=== PATIENT | male | born 1945 | race Caucasian/White ===

== ENCOUNTER 2017-01-19 07:53 | Outpatient (CLI) | payer MEDICARE, OTHER ==
--- NOTE | ~2017-01-19 | HEMODYNAMI ---
PATIENT:SHYANNE PEÑA MEDICAL RECORD: [id number] : 49 LOCATION:[facility] ADMISSION DATE: 01/19/17 Generatedon:01/19/201710:21 Patient name: SHYANNE PEÑA Patient #: [id number] SSN: : Date of study: 01/19/2017 Page: Of Hemodynamic Procedure Report Patient Data Patient Demographics Procedure consent was obtained First Name: SHYANNE Gender: Male Last Name: CASEY : 1945 [facility] Initial: DEMOND Age: 71 year(s) Patient #: [id number] Race: Additional ID: [id number] Contact details Address: [address] [place] [address] State: [place] City: [place] Zip code: [address] Past Medical History Allergies: No known allergies Admission Admission Data Admission Date: 01/19/2017 Admission Time: 7:53 Height (in.): 72.83 BSA: 2.2 (m2) Height (cm.): 185 BMI: 27.89 (kg/m2) Weight (lbs.): 210.43 Weight (kg.): 95.45 Lab Results Lab Result Date: 01/19/2017 Lab Result Time: 0:00 Biochemistry Name Units Result Min Max BUN mg/dl 24 --(----)-* 7 18 Creatinine mg/dl 1.1 --(--*-)-- 0.6 1.3 CBC Name Units Result Min Max Hemoglobin g/dl 14.9 --(-*--)-- 13.5 17.5 Procedure Procedure Types Cath Procedure Diagnostic Procedure C [facility] w/Coronaries PCI Procedure Coronary Stent Initial Miscellaneous Procedures Procedure Description Procedure Date Procedure Date: 01/19/2017 Procedure Start Time: 9:57 Procedure End Time: 10:17 Procedure Staff Name Function Kodi Encarnacion MD Performing Physician Rosita Vega RT Scrub Rhonda Dupree RT Monitor Ashley Padilla RN Nurse Indication Angina Procedure Data Cath Procedure Fluoroscopy Diagnostic fluoroscopy Total fluoroscopy Time: 6.3 time: 6.3 min min Diagnostic fluoroscopy Total fluoroscopy dose: 306 dose: 306 mGy mGy Contrast Material Contrast Material Type Amount (ml) Isovue 300 129 Entry Location Entry Primary Successful Side Size Upsize Upsize Entry Closure Felipe ccessful Closure Location (Fr) 1 (Fr) 2 (Fr) Remarks Device Remarks Radial Right 6 Fr Mechanical TR artery Short Compression Estimated blood loss: 10 ml Diagnostic catheters Device Type Used For End Catheter Placement Diagnostic Terumo 5Fr Procedure Stuart 110cm catheter Diagnostic Infinity 5Fr Procedure AR 2 MOD catheter Procedure Complications No complications Procedure Medications Medication Administration Route Dosage Oxygen NC 2 l/min Lidocaine 2% added to field 20 Heparin Flush Bag added to field 2 bags (1000units/500ml NS) 0.9% NaCl I.V. 100 ml/hr Versed I.V. 1 mg Fentanyl I.V. 50 mcg Versed I.V. 1 mg Fentanyl I.V. 50 mcg Fentanyl I.V. 50 mcg Versed I.V. 1 mg Fentanyl I.V. 50 mcg Heparin Bolus I.V. 4000 units Hemodynamics Rest BSA: 2.2 (m2) HGB: 14.9 (g/dl) O2 Consumption: Estimated: 253.36 (ml/min) O2 Con sumption indexed: Estimated:115.16 (ml/min/m) Heart Rate: 68 (bpm) Snapshots Pre Cath Intra NCS Post Cath Vital Signs Time Heart Resp SPO2 NIBP (mmHg) Rhythm Pain Sedation Rate (ipm) (%) Status Level (bpm) 9:23:59 70 19 95 142/92(117) NSR 0 (11) 10(A) , No pain 9:28:19 73 17 95 143/94(120) NSR 0 (11) 10(A) , No pain 9:32:33 74 16 94 136/92(111) NSR 0 (11) 10(A) , No pain 9:36:53 70 18 95 145/93(103) NSR 0 (11) 10(A) , No pain 9:41:15 72 15 94 135/91(106) NSR 0 (11) 10(A) , No pain 9:45:40 72 16 95 135/80(94) NSR 0 (11) 10(A) , No pain 9:50:00 76 15 93 139/86(105) NSR 0 (11) 10(A) , No pain 9:54:16 70 16 94 128/84(109) NSR 0 (11) 10(A) , No pain 9:58:32 73 16 94 122/88(103) NSR 0 (11) 9(A) , No pain 10:02:44 81 18 94 107/72(91) NSR 0 (11) 9(A) , No pain 10:06:56 80 15 93 112/75(91) NSR 0 (11) 9(A) , No pain 10:11:08 79 16 94 114/76(84) NSR 0 (11) 9(A) , No pain 10:15:20 78 19 94 107/73(96) NSR 0 (11) 10(A) , No pain Medications Time Medication Route Dose Verified Delivered Reason Notes Effectiveness by by 9:48:49 Oxygen NC 2 Kodi Kodi used for l/min Alysha Encarnacion MD procedure 9:48:56 Lidocaine 2% added 20ml Kodi Kodi for local to vial Alysha Encarnacion MD anesthetic field 9:49:03 Heparin Flush added 2 Kodi Kodi used for Bag to bags Alysha Encarnacion MD procedure (1000units/500ml field NS) 9:49:14 0.9% NaCl I.V. 100 Kodi Buffie Per physician ml/hr Alysha Padilla RN 9:55:09 Versed I.V. 1 mg Kodi Buffie for sedation Alysha Padilla RN 9:55:15 Fentanyl I.V. 50 Kodi Buffie for sedation mcg Alysha Padilla RN 9:57:35 Versed I.V. 1 mg Kodi Buffie for sedation Alysha Padilla RN 9:57:39 Fentanyl I.V. 50 Kodi Buffie for sedation mcg Alysha Padilla RN 9:59:11 Fentanyl I.V. 50 Kodi Buffie for sedation mcg Alysha Padilla RN 10:04:49 Heparin Bolus I.V. 4000 Kodi Buffie for verifi ed units Alysha Padilla RN anticoagulation with dr encarnacion 10:04:56 Versed I.V. 1 mg Kodi Buffie for sedation Alysha Padilla RN 10:05:01 Fentanyl I.V. 50 Kodi Buffie for sedation mcg Alysha Padilla merchandising internship Log Time Note 8:48:50 Informed consent obtained and on chart 8:49:20 Diagnostic Cath Status : Elective 8:49:54 Indication : Angina 8:55:01 Rosita Vega RT(R) sent for patient. Start room use. 8:55:02 Time tracking: Regular hours 8:55:06 Plan of Care:Hemodynamics will remain stable., Cardiac rhythm will remain stable., Comfort level will be maintained., Respiratory function will remain adequate., Patient/ family verbilizes understanding of procedure., Procedure tolerated without complication., Recovers from procedure without complications.. 9:12:12 Lab Result : Hemoglobin 14.9 g/dl 9:12:12 Lab Result : Creatinine 1.1 mg/dl 9:12:12 Lab Result : BUN 24 mg/dl 9:16:50 Patient received from Pre/Post Procedure Room to CCL 3 Alert and oriented. Tansferred to table in Supine position. 9:16:51 Warm blankets applied, and fely hugger turned on for patient comfort. 9:16:51 Correct patient and procedure confirmed by team. 9:16:52 ECG and BP/O2 sat monitors applied to patient. 9:22:36 Vital chart was started 9:22:38 Baseline sample Acquired. 9:22:43 Rhythm: sinus rhythm 9:22:45 Full Disclosure recording started 9:23:01 H&P Date Dictated: 01/03/2017 Within 30 days and on chart., H&P Addendum completed by physician on day of procedure. (MUST COMPLETE FOR ALL OUTPATIENTS). 9:23:03 Pre-procedure instructions explained to patient. 9:23:05 Family in waiting room. 9:23:07 Patient NPO since Midnight. 9:23:37 Patient allergic to No known allergies 9:23:54 Is the patient allergic to Iodine/contrast media? No. 9:23:56 Was the patient premedicated? Yes 9:23:57 Is patient on blood thinner?Yes 9:24:01 ACC The patient was administered the following blood thiners within the last 24 hours: ACCPlavix 9:24:03 Patient diabetic? No. 9:24:10 Snore? No 9:24:11 Sleep apnea? No 9:24:17 Dentures? No ? 9:24:26 Patient pain scale 0/10 ?. 9:24:32 IV patent on arrival in left forearm with 0.9% NaCl at [facility]. 9:24:40 Lab results completed and on chart. 9:24:44 Right Radial & Right Groin area was prepped with chlora-prep and draped in sterile fashion 9:24:46 Sharps counted by scrub and verified by R.N. 9:24:48 Physician paged 9:43:08 Use device set Radial Dx 9:45:40 Acist Syringe opened to sterile field. 9:45:41 Medline Cath Pack opened to sterile field. 9:45:41 Bag Decanter opened to sterile field. 9:45:41 Terumo 6Fr Slender Glidesheath opened to sterile field. 9:45:42 St Mendez 260cm J .035 wire opened to sterile field. 9:45:42 Acist Hand Control opened to sterile field. 9:45:43 Acist Manifold opened to sterile field. 9:45:44 Tegaderm 4 x 4 opened to sterile field. 9:45:53 Zero performed for pressure channel P1 9:45:59 Zero performed for pressure channel P1 9:46:08 Zero performed for pressure channel P1 9:47:14 Zero performed for pressure channel P1 9:48:49 Oxygen 2 l/min NC was administered by Kodi Encarnacion MD; used for procedure; 9:48:56 Lidocaine 2% 20ml vial added to field was administered by Kodi Encarnacion MD; for local anesthetic; 9:49:03 Heparin Flush Bag (1000units/500ml NS) 2 bags added to field was administered by Kodi Encarnacion MD; used for procedure; 9:49:10 Patient Height : 185 inches 9:49:14 0.9% NaCl 100 ml/hr I.V. was administered by Ashley Padilla RN; Per physician; 9:49:16 Patient Weight : 95.45 lbs 9:54:41 Physician arrived 9:54:43 --------ALL STOP TIME OUT------ 9:54:44 Final Timeout: patient, procedure, and site verified with staff and physician. All members of the team are in agreement. 9:54:47 Right Radial & Right Groin site verified by team. 9:54:51 Sedation plan: IV Moderate Sedation Versed, Fentanyl 9:55:09 Versed 1 mg I.V. was administered by Ashley Padilla RN; for sedation; 9:55:15 Fentanyl 50 mcg I.V. was administered by Ashley Padilla RN; for sedation; 9:57:35 Versed 1 mg I.V. was administered by Ashley Padilla RN; for sedation; 9:57:39 Fentanyl 50 mcg I.V. was administered by Ashley Padilla RN; for sedation; 9:57:40 Procedure started. 9:57:58 Local anesthetic to right radial artery with Lidocaine 2% by Kodi Encarnacion MD.INITIAL ACCESS ONLY 9:58:21 A 6 Fr Short sheath was inserted into the Right Radial artery 9:59:11 Fentanyl 50 mcg I.V. was administered by Ashley Padilla RN; for sedation; 9:59:12 A Diagnostic Gigoptixumo 5Fr Stuart 110cm catheter was advanced over the wire and used for Procedure. 9:59:41 LV angiography performed. 10:00:37 EF : 60 % 10:00:41 LCA angiography performed. 10:01:15 Catheter removed. 10:03:12 A Diagnostic Infinity 5Fr AR 2 MOD catheter was advanced over the wire and used for Procedure. 10:03:27 [employer] BasixCompak Inflation Kit opened to sterile field. 10:03:28 Hernandez Whisper J 300cm 0.014 guide wire opened to sterile field. 10:03:44 RCA angiography performed. 10:04:15 Catheter removed. 10:04:28 Medtronic Launcher 6Fr HS II guide catheter opened to sterile field. 10:04:49 Heparin Bolus 4000 units I.V. was administered by Ashley Padilla RN; for anticoagulation; verified with dr encarnacion 10:04:56 Versed 1 mg I.V. was administered by Ashley Padilla RN; for sedation; 10:05:01 Fentanyl 50 mcg I.V. was administered by Ashley Padilla RN; for sedation; 10:05:09 Medtronic Launcher 6Fr HS II guide catheter opened to sterile field. 10:05:13 Proceeding to intervention. 10:06:49 6 Fr hs2 guide catheter was inserted over the wire 10:06:54 whisp wire advanced. 10:06:56 Wire advanced across lesion. 10:07:05 IVUS catheter advanced over wire. 10:09:59 IVUS catheter removed over wire. 10:12:05 Bude [place] Eagleye IVUS Catheter opened to sterile field. 10:12:05 Hernandez Whisper J 300cm 0.014 guide wire opened to sterile field. 10:14:23 new whisper inserted 10:14:47 Inflation Number: 1 A Medtronic Integrity 4.0 X 18 stent was prepped and advanced across the Mid RCA. The stent was deployed at 17 VIPUL for 0:10 (min:sec). 10:15:16 Stent catheter was removed intact over wire. 10:15:17 Wire removed. 10:15:17 Guide catheter removed. 10:15:39 Sheath removed intact; hemostasis achieved with Mechanical Compression to the Right Radial artery. 10:15:57 Terumo TR Band Standard opened to sterile field. 10:16:02 Procedure ended.(Physican Out) 10:16:24 Fluoroscopy time 06.30 minutes. 10:16:39 Fluoroscopy dose: 306 mGy 10:16:39 Flurop Dose total: 306 10:16:43 Contrast amount:Isovue 300 129ml. 10:16:44 Sharps counted by scrub and verified by R.N. 10:16:48 TR band inflated with 10cc of air. 10:16:49 Insertion/operative site no bleeding no hematoma. 10:17:02 Post right radial artery:stable 10:17:04 Post Procedure Pulses reassessed and unchanged 10:17:08 Post-procedure physical assessment completed. ASA score P 2 - A patient with mild systemic disease as per Kodi Encarnacion MD. 10:17:13 Post procedure rhythm: unchanged. 10:17:16 Estimated blood loss: 10 ml 10:17:18 Post procedure instruction explained to patient.Patient verbalizes understanding. 10:17:30 Procedure type changed to Cath procedure, Diagnostic procedure, LHC, LHC w/Coronaries, PCI procedure, Coronary Stent Initial, Miscellaneous Procedures 10:17:31 Procedure and supply charges have been captured, reviewed, submitted and are correct. 10:17:38 Procedure Complication : No complications 10:17:42 Vital chart was stopped 10:17:42 See physician's report for complete and final results. 10:17:44 Report given to Pre/Post Procedure Room. 10:17:47 Patient transfered to Pre/Post Procedure Room with Stretcher. 10:17:49 Procedure ended. 10:17:49 Full Disclosure recording stopped 10:17:53 End room use (Document Last) 10:18:13 ACC-PCI Only Patient was given prescriptions, or instructed by Kodi Encarnacion MD to start/continue the following medications upon discharge: Plavix Intervention Summary Intervention Notes Time ActionType Lesion and Equipment Action# Pressure Duration Attributes Used 10:14:47 Place stent Mid RCA Medtronic 1 17 00:10 Integrity 4.0 X 18 stent Device Usage Item Name Manufacture Quantity Catalog Hospital Part Current Minimal Lot# / Number Charge Number Stock Stock Serial# Code Acist Acist 1 63969 276552 521868 149817 20 Syringe Medical Systems Inc Medline Cardinal 1 [id number] 849258 66400 944484 5 Cath Pack Health Bag Microtek 1 2002S 859634 96999 605467 5 DecLex [employer] Terumo 6Fr Terumo 1 [id number] 323625 193763 015133 [address] M[address] St Mendez 1 219431 312118 944038 711210 30 260cm J .035 wire Acist Hand Acist 1 33048 063925 937726 177950 5 Control Medical Systems Inc Acist Acist 1 85611 450849 752010 677801 5 oncgnostics GmbH Medical Systems Inc Tegaderm 4 3M 1 1626W 415288 246893 288984 5 x 4 Diagnostic Terumo 1 40-5013 503394 075826 261245 5 Terumo 5Fr Stuart 110cm catheter Diagnostic Cardinal 1 [id number] 124798 609597 728249 20 YAZUO Health 5Fr AR 2 MOD catheter Merit Merit 1 [id number] 635907 048791 486672 15 BasixCompak Medical Inflation Kit Hernandez Hernandez 2 [id number] 156416 680026 899076 5 Whisper J Vascular 300cm 0.014 guide wire Medtronic Medtronic 2 [id number] 179187 36365 486531 1 Launcher 6Fr HS II guide catheter Bude Bude 1 [id number] 569459 658936 159846 8 [place] Eagleye IVUS Catheter Medtronic Medtronic 1 [id number] 171277 856750 0 [id number] Integrity 4.0 X 18 stent Terumo TR Terumo 1 [id number] 056528 737648 672411 40 Band Standard Signature Audit [place] Stage Time Signature Unsigned Intra-Procedure 01/19/2017 Rhonda Dupree 10:21:27 AM RT(R) Signatures Monitor : Rhonda Dupree Signature : RT Date : Time : [address] [address]
[2017-01-19] MEDS ORDERED: PLAVIX75 MG PO (08:11)
[2017-01-19] MEDS ORDERED: FISH OIL 1,0001 CA1 PO (08:12)
[2017-01-19] MEDS ORDERED: BAYER CHEWABLE81 MG PO (08:12)
[2017-01-19 08:19] VITALS: BP 159/94; BMI 27.7
[2017-01-19 08:31] LABS: BASOPHILS 0.5 % (0-2); HEMATOCRIT 44.7 % (42.0-54.0); HEMOGLOBIN 14.9 g/dL (13.5-17.5); IMMATURE GRANULOCYTES 0.3 % (0-5); LYMPHOCYTES 23.4 % (15-50); MCH 28.6 pg (26.0-34.0); MCHC 33.3 g/dL (31.0-37.0); MCV 85.8 fL (80.0-100.0); MEAN PLATELET VOLUME 9.3 fL (7.4-10.4); MONOCYTES 6.7 % (2-11); NEUTROPHILS 66.1 % (40-80); PLATELET COUNT 257 10x3/uL (130-400); RBC 5.21 10x6/uL (4.20-6.10); RDW 13.2 % (11.5-14.5); WBC 6.4 10x3/uL (4.8-10.8)
[2017-01-19 09:02] LABS: ANION GAP 13.2 mmol/L (8-16); CALCIUM 9.1 mg/dL (8.5-10.1); CARBON DIOXIDE 24.9 mmol/L (21.0-32.0); CREATININE - SERUM 1.1 mg/dL (0.6-1.3); POTASSIUM - SERUM 4.1 mmol/L (3.5-5.1)
--- NOTE | 2017-01-19 10:44 | NUR ---
2L NC, NO RESP DISTRESS NOTED. RIGHT WRIST TR BAND CDI, NO BLEEDING OR HEMATOMA NOTED. NO C/O CHEST PAIN OR NAUSEA. VSS. AT BEDSIDE, CALL LIGHT WITHIN REACH.
--- NOTE | 2017-01-19 11:15 | NUR ---
2L NC, NO RESP DISTRESS NOTED. RIGHT WRIST TR BAND CDI, NO BLEEDING OR HEMATOMA NOTED. NO C/O CHEST PAIN OR NAUSEA. VSS. DENIES ANY NEEDS. CALL LIGHT WITHIN REACH.
--- NOTE | 2017-01-19 11:30 | NUR ---
RIGHT WRIST TR BAND CDI, NO BLEEDING OR HEMATOMA NOTED. DENIES ANY CHEST PAIN OR NAUSEA. VSS. WILL CONTINUE TO MONITOR.
--- NOTE | 2017-01-19 12:10 | NUR ---
HR 64 BP 113/86 CHEST PAIN DENIED TR BAND TO R/WRIST CDI NO BLEEDING NO HEMATOMA NOTED.
--- NOTE | 2017-01-19 13:09 | OP ---
PATIENT NAME: SHYANNE PEÑA MEDICAL RECORD: [id number] :49 LOCATION:D.CAT ADMISSION DATE: SURGEON: ENDER SHER MD DATE OF OPERATION: 01/19/2017 PROCEDURES: 1. PTCA stent RCA. 2. Intravascular ultrasound RCA. 3. Left heart catheterization. 4. Selective coronary angiography. 5. Left ventriculogram. INDICATION: Angina, coronary artery disease, abnormal nuclear stress test. PROCEDURE IN DETAIL: After informed consent was obtained and after a detailed explanation of risks, benefits as well as alternative therapies, the patient elected to proceed with angiogram and angioplasty. The right radial area was prepped and draped in normal sterile fashion. The right radial artery was cannulated via modified Seldinger technique with placement of 6-Romanian sheath. All catheters exchanged through this sheath. FINDINGS: The left ventriculogram was performed in standard 30-degree MARTINI view, reveals good cardiac wall motion throughout all segments. Overall ejection fraction estimated at 60%. SELECTIVE CORONARY ANGIOGRAPHY: 1. Left main showed no significant angiographic disease. 2. Left anterior descending has a long area of 80% stenosis in the mid vessel. 3. Left circumflex has a 70% stenosis in the mid vessel. 4. Right coronary has 70% stenosis in the mid vessel confirmed by intravascular ultrasound. PTCA STENT OF THE RIGHT CORONARY: The stent used was 4.0 x 18 mm Integrity. Result was 0% residual stenosis. OVERALL IMPRESSION: Successful percutaneous transluminal coronary angioplasty stent of the right coronary artery going from 70% initial stenosis confirmed by intravascular ultrasound to 0% residual stenosis. PLAN: PTCA stent of the left circumflex and LAD in the near future. TRANSINT:[id number] Voice Confirmation ID: [id number] DOCUMENT ID: [id number] ENDER SHER MD at 1309 CC: [id number] DICTATION DATE: 01/19/17 1019 MUSIC DEPARTMENT CHAIR: 01/19/17 120[id number] [place] [address]
--- NOTE | 2017-01-19 13:15 | NUR ---
2CC OF AIR REMOVED FROM TR BAND, NO BLEEDING NOTED.
--- NOTE | 2017-01-19 13:30 | NUR ---
3CC OF AIR REMOVED FROM TR BAND, NO BLEEDING NOTED.
--- NOTE | 2017-01-19 13:45 | NUR ---
2CC OF AIR REMOVED FROM TR BAND, NO BLEEDING NOTED.
--- NOTE | 2017-01-19 13:55 | NUR ---
LEFT WRIST PIV D/C'D WITH CATHETER INTACT, BAND AID TO SITE. UP TO BEDSIDE TO GET DRESSED.
--- NOTE | 2017-01-19 14:08 | NUR ---
DISCHARGE INSTRUCTIONS GIVEN, VERBALIZED UNDERSTANDING. REMAINING AIR REMOVED FROM TR BAND AND DRESSING TO SITE.
--- NOTE | 2017-01-19 14:17 | NUR ---
TAKEN OUT VIA WHEELCHAIR BY CATH NEW BUSINESS CLERK. LEFT FACILITY WITH AND ALL PERSONAL BELONGINGS.
== END 2017-01-19 14:15 | disposition home or self-care (01) ==
LOC: D.CATH 07:53
PROVIDERS: Internal Medicine Interventional Cardiology
DX: I25.119 Atherosclerotic heart disease of native coronary artery with unspecified angina pectoris (principal); R94.30 Abnormal result of cardiovascular function study, unspecified; R06.02 Shortness of breath; Z01.812 Encounter for preprocedural laboratory examination

== ENCOUNTER 2017-01-26 07:58 | Outpatient (CLI) | payer MEDICARE, OTHER ==
--- NOTE | ~2017-01-26 | HEMODYNAMI ---
PATIENT:SHYANNE PEÑA MEDICAL RECORD: [id number] : 49 LOCATION:[facility] ADMISSION DATE: 01/26/17 Generatedon:01/26/201710:57 Patient name: SHYANNE PEÑA Patient #: [id number] SSN: : Date of study: 01/26/2017 Page: Of Hemodynamic Procedure Report Patient Data Patient Demographics Procedure consent was obtained First Name: SHYANNE Gender: Male Last Name: CASEY : 1945 [facility] Initial: DEMOND Age: 71 year(s) Patient #: [id number] Race: Additional ID: [id number] Contact details [address]: [address] [place] [address] State: [place] City: [place] Zip code: [address] Past Medical History Allergies: No known allergies Admission Admission Data Admission Date: 01/26/2017 Admission Time: 7:58 Procedure Procedure Types Cath Procedure PCI Procedure Coronary Stent Initial x2 Miscellaneous Procedures Moderate Sedation up to 15 minutes Procedure Description Procedure Date Procedure Date: 01/26/2017 Procedure Start Time: 10:42 Procedure End Time: 10:56 Procedure Staff Name Function Kodi Encarnacion MD Performing Physician Mali Enamorado RT Scrub Mayank Salamanca RT Monitor Parma Mora RN Nurse Procedure Data Cath Procedure Fluoroscopy Diagnostic fluoroscopy Total fluoroscopy Time: 3.4 time: 3.4 min min Diagnostic fluoroscopy Total fluoroscopy dose: 431 dose: 431 mGy mGy Contrast Material Contrast Material Type Amount (ml) Isovue 300 58 Entry Location Entry Primary Successful Side Size Upsize Upsize Entry Closure Felipe ccessful Closure Location (Fr) 1 (Fr) 2 (Fr) Remarks Device Remarks Radial Right 6 Fr Mechanical artery Short Compression Estimated blood loss: 10 ml Procedure Complications No complications Procedure Medications Medication Administration Route Dosage Oxygen NC 2 l/min Heparin Flush Bag added to field 2 bags (1000units/500ml NS) 0.9% NaCl I.V. 100 ml/hr Radial Cocktail added to field 1 syringe (Verapomil 2mg/Nitro 400mcg/Heparin 1500units) Fentanyl I.V. 50 mcg Versed I.V. 1 mg Fentanyl I.V. 50 mcg Versed I.V. 1 mg Fentanyl I.V. 50 mcg Versed I.V. 1 mg Fentanyl I.V. 50 mcg Versed I.V. 1 mg Fentanyl I.V. 50 mcg Radial Cocktail I.A. 1 syringe (Verapomil 2mg/Nitro 400mcg/Heparin 1500units) Fentanyl I.V. 50 mcg Heparin Bolus I.V. 5000 units Hemodynamics Rest HGB: 14.9 (g/dl) Heart Rate: 62 (bpm) Pressure Samples Time Site Value (mmHg) Purpose Heart Use Rate(bpm) 10:47 AO 79/65(72) Snapshot 71 Snapshots Pre Cath Intra NCS Post Cath Vital Signs Time Heart Resp SPO2 etCO2 NIBP (mmHg) Rhythm Pain Sedation Rate (ipm) (%) (mmHg) Status Level (bpm) 10:04:04 66 17 98 0 142/88(110) NSR 0 (11) 10(A) , No pain 10:08:47 64 18 98 0 139/81(101) NSR 0 (11) 10(A) , No pain 10:13:27 67 18 96 0 127/77(99) NSR 0 (11) 10(A) , No pain 10:18:10 69 17 95 0 128/81(101) NSR 0 (11) 10(A) , No pain 10:22:53 64 17 96 0 133/79(109) NSR 0 (11) 10(A) , No pain 10:27:31 67 19 96 0 118/83(98) NSR 0 (11) 10(A) , No pain 10:32:10 72 18 92 0 124/88(115) NSR 0 (11) 10(A) , No pain 10:36:50 74 18 94 0 122/76(102) NSR 0 (11) 10(A) , No pain 10:42:04 67 22 96 0 118/77(112) NSR 0 (11) 9(A) , No pain 10:46:42 82 18 96 0 108/72(92) NSR 0 (11) 9(A) , No pain 10:51:15 78 17 94 0 106/82(100) NSR 0 (11) 9(A) , No pain 10:53:59 81 17 96 0 111/77(103) NSR 0 (11) 9(A) , No pain Medications Time Medication Route Dose Verified Delivered Reason Note s Effectiveness by by 10:08:18 Oxygen NC 2 l/min Kodi Virgen Per physician Alysha Mora RN 10:08:30 Heparin Flush added 2 bags Kodi Virgen used for Bag to Alysha Mora RN procedure (1000units/500ml field NS) 10:08:41 0.9% NaCl I.V. 100 Kodi Param Per physician ml/hr Alysha Mora RN 10:08:52 Radial Cocktail added 1 Kodi Huffy used for (Verapomil to syringe Alysha Mora RN procedure 2mg/Nitro field 400mcg/Heparin 1500units) 10:33:20 Fentanyl I.V. 50 mcg Kodi Param for sedation Alysha Mora RN 10:33:29 Versed I.V. 1 mg Kodi Param for sedation Alysha Mora RN 10:34:18 Fentanyl I.V. 50 mcg Kodi Param for sedation Alysha Mora RN 10:34:24 Versed I.V. 1 mg Kodi Param for sedation Alysha Mora RN 10:37:27 Fentanyl I.V. 50 mcg Kodi Param for sedation Alysha Mora RN 10:37:32 Versed I.V. 1 mg Kodi Param for sedation Alysha Mora RN 10:38:40 Fentanyl I.V. 50 mcg Kodi Param for sedation Alysha Mora RN 10:38:45 Versed I.V. 1 mg Kodi Param for sedation Alysha oMra RN 10:41:39 Fentanyl I.V. 50 mcg Kodi Param for sedation Alysha Mora RN 10:43:51 Radial Cocktail I.A. 1 Kodi Kodi for (Verapomil syringe Alysha Encarnacion MD vasodilation 2mg/Nitro 400mcg/Heparin 1500units) 10:44:35 Fentanyl I.V. 50 mcg Kodi Param for sedation Alysha Mora RN 10:44:47 Heparin Bolus I.V. 5000 Kodi Param for units Alysha Mora RN anticoagulation Procedure Log Time Note 9:35:44 Mayank Salamanca RT(R) sent for patient. Start room use. 9:49:14 Time tracking: Regular hours 9:49:21 Plan of Care:Hemodynamics will remain stable., Cardiac rhythm will remain stable., Comfort level will be maintained., Respiratory function will remain adequate., Patient/ family verbilizes understanding of procedure., Procedure tolerated without complication., Recovers from procedure without complications.. 9:54:44 Patient received from Pre/Post Procedure Room to CCL 1 Alert and oriented. Tansferred to table in Supine position. 9:54:45 Warm blankets applied, and fely hugger turned on for patient comfort. 9:55:09 Correct patient and procedure confirmed by team. 9:55:13 Signed procedure consent form obtained from patient. 9:55:15 ECG and BP/O2 sat monitors applied to patient. 10:03:07 Vital chart was started 10:07:29 Baseline sample Acquired. 10:07:32 Rhythm: sinus rhythm 10:07:33 Full Disclosure recording started 10:07:47 H&P Date Dictated: 01/26/2017 New H&P dictated by physician.. 10:07:49 Pre-procedure instructions explained to patient. 10:07:49 Pre-op teaching completed and patient verbalized understanding. 10:07:53 Family in waiting room. 10:07:55 Patient NPO since Midnight. 10:08:08 Is the patient allergic to Iodine/contrast media? No. 10:08:10 Is patient on blood thinner?Yes 10:08:13 ACC The patient was administered the following blood thiners within the last 24 hours: ACCPlavix 10:08:15 Patient diabetic? No. 10:08:17 Previous problem with sedation/anesthesia? No ? 10:08:18 Oxygen 2 l/min NC was administered by Param Mora RN; Per physician; 10:08:18 Snore? Yes 10:08:20 Sleep apnea? No 10:08:20 Deviated septum? No 10:08:21 Opens mouth fully? Yes 10:08:22 Sticks out tongue? Yes 10:08:23 Airway obstruction? No ? 10:08:25 Dentures? No ? 10:08:28 Pre procedure: right dorsailis pedis pulse 1+ Palpable, but thready & weak; easily obliterated 10:08:30 Heparin Flush Bag (1000units/500ml NS) 2 bags added to field was administered by Param Mora RN; used for procedure; 10:08:30 Modified Imtiaz's test Ulnar < 7 seconds 10:08:32 Patient pain scale 0/10 ?. 10:08:35 IV patent on arrival in left forearm with 0.9% NaCl at [facility]. 10:08:38 Lab results completed and on chart. 10:08:41 0.9% NaCl 100 ml/hr I.V. was administered by Param Mora RN; Per physician; 10:08:41 Right Radial & Right Groin area was prepped with chlora-prep and draped in sterile fashion 10:08:43 Alarms reviewed by R. N. 10:08:43 Sharps counted by scrub and verified by R.N. 10:08:52 Radial Cocktail (Verapomil 2mg/Nitro 400mcg/Heparin 1500units) 1 syringe added to field was administered by Param Mora RN; used for procedure; 10:14:33 Use device set Radial PCI 10:14:35 Tegaderm 4 x 4 opened to sterile field. 10:14:36 Acist Manifold opened to sterile field. 10:14:37 Acist Syringe opened to sterile field. 10:14:38 Acist Hand Control opened to sterile field. 10:14:38 Bag Decanter opened to sterile field. 10:14:39 Medline Cath Pack opened to sterile field. 10:14:39 Merit BasixCompak Inflation Kit opened to sterile field. 10:14:39 Terumo 6Fr Slender Glidesheath opened to sterile field. 10:14:40 MBrace Wrist Support opened to sterile field. 10:14:40 St Mendez 260cm J .035 wire opened to sterile field. 10:14:42 Hernandez Whisper J 300cm 0.014 guide wire opened to sterile field. 10:32:53 --------ALL STOP TIME OUT------ 10:32:54 Final Timeout: patient, procedure, and site verified with staff and physician. All members of the team are in agreement. 10:32:56 Right Radial & Right Groin site verified by team. 10:32:59 Physical assessment completed. ASA score P 2 - A patient with mild systemic disease as per Kodi Encarnacion MD. 10:33:03 Sedation plan: IV Moderate Sedation Versed, Fentanyl 10:33:20 Fentanyl 50 mcg I.V. was administered by Param Mora RN; for sedation; 10:33:24 Cordis 6FR XBLAD 3.5 guide catheter opened to sterile field. 10:33:29 Versed 1 mg I.V. was administered by Param Mora RN; for sedation; 10:34:18 Fentanyl 50 mcg I.V. was administered by Param Mora RN; for sedation; 10:34:24 Versed 1 mg I.V. was administered by Param Mora RN; for sedation; 10:37:27 Fentanyl 50 mcg I.V. was administered by Param Mora RN; for sedation; 10:37:32 Versed 1 mg I.V. was administered by Param Mora RN; for sedation; 10:38:40 Fentanyl 50 mcg I.V. was administered by Param Mora RN; for sedation; 10:38:45 Versed 1 mg I.V. was administered by Param Mora RN; for sedation; 10:41:39 Fentanyl 50 mcg I.V. was administered by Param Mora RN; for sedation; 10:42:44 Procedure started. 10:42:54 Local anesthetic to right radial artery with Lidocaine 2% by Kodi Encarnacion MD.INITIAL ACCESS ONLY 10:43:46 A 6 Fr Short sheath was inserted into the Right Radial artery 10:43:51 Radial Cocktail (Verapomil 2mg/Nitro 400mcg/Heparin 1500units) 1 syringe I.A. was administered by Kodi Encarnacion MD; for vasodilation; 10:44:30 6 Fr XBLAD 3.5 guide catheter was inserted over the wire 10:44:35 Fentanyl 50 mcg I.V. was administered by Param Mora RN; for sedation; 10:44:38 Study PCI Site: [place] mLAD has 80% stenosis. 10:44:41 ACC Pre-intervention BERNADETTE Flow is 3. 10:44:47 Heparin Bolus 5000 units I.V. was administered by Param Mora RN; for anticoagulation; 10:45:02 Study PCI Site: [place] mCirc has 80% stenosis. 10:45:06 ACC Pre-intervention BERNADETTE Flow is 3. 10:45:26 Whisper wire advanced. 10:47:33 Wire advanced across lesion. 10:47:54 Inflation Number: 1 A Medtronic Integrity 3.0 X 12 stent was prepped and advanced across the Mid CX. The stent was deployed at 11 VIPUL for 0:10 (min:sec). 10:48:45 ACC Post-intervention BERNADETTE Flow is 3. 10:48:48 Wire redirected to LAD. 10:48:52 Stent catheter was removed intact over wire. 10:50:58 Inflation Number: 1 A Medtronic Integrity 2.5 X 22 stent was prepped and advanced across the Mid LAD. The stent was deployed at 15 VIPUL for 0:10 (min:sec). 10:51:04 ACC Post-intervention BERNADETTE Flow is 3. 10:51:06 Stent catheter was removed intact over wire. 10:51:06 Wire removed. 10:51:07 Guide catheter removed. 10:53:04 Sheath removed intact; hemostasis achieved with Mechanical Compression to the Right Radial artery. 10:53:07 Procedure ended.(Physican Out) 10:54:37 Fluoroscopy time 03.40 minutes. 10:54:41 Flurop Dose total: 431 10:54:41 Fluoroscopy dose: 431 mGy 10:54:44 Contrast amount:Isovue 300 58ml. 10:54:46 Sharps counted by scrub and verified by R.N. 10:54:48 Insertion/operative site no bleeding no hematoma. 10:54:52 TR band inflated with 11cc of air. 10:54:55 Post Procedure Pulses reassessed and unchanged 10:54:57 Post-procedure physical assessment completed. ASA score P 2 - A patient with mild systemic disease as per Kodi Encarnacion MD. 10:54:59 Post procedure rhythm: unchanged. 10:55:01 Estimated blood loss: 10 ml 10:55:03 Post procedure instruction explained to patient.Patient verbalizes understanding. 10:55:03 Patient needs reinforcement of post procedure teaching. 10:55:14 Procedure type changed to Cath procedure, PCI procedure, Coronary Stent Initial x2, Miscellaneous Procedures, Moderate Sedation up to 15 minutes 10:55:19 Procedure Complication : No complications 10:55:21 Procedure and supply charges have been captured, reviewed, submitted and are correct. 10:55:40 Terumo TR Band Standard opened to sterile field. 10:56:01 Vital chart was stopped 10:56:02 See physician's report for complete and final results. 10:56:04 Report given to Pre/Post Procedure Room. 10:56:06 Patient transfered to Pre/Post Procedure Room with Stretcher. 10:56:08 Procedure ended. 10:56:08 Full Disclosure recording stopped 10:57:43 End room use (Document Last) Intervention Summary Intervention Notes Time ActionType Lesion and Equipment Action# Pressure Duration Attributes Used 10:47:54 Place stent Mid CX Medtronic 1 11 00:10 Integrity 3.0 X 12 stent 10:50:58 Place stent Mid LAD Medtronic 1 15 00:10 Integrity 2.5 X 22 stent Device Usage Item Name Manufacture Quantity Catalog Hospital Part Current Minimal Lot# / Number Charge Number Stock Stock Serial# Code Tegaderm 4 1 [id number] [id number] 5 x 4 Acist Acist 1 33947 391314 128064 473841 5 Manifold Medical Systems Inc Acist Acist 1 37828 419763 210366 961769 20 Syringe Medical Systems Inc Acist Hand Acist 1 82243 451627 614289 759289 5 Control Medical Systems Inc Bag Microtek 1 2002S 112422 23779 684938 5 Decanter Medical Inc. Medline Cardinal 1 [id number] 324401 66397 334588 5 Cath Pack [facility] 1 [id number] 194986 615310 667886 15 BasixCompak Medical Inflation Kit Terumo 6Fr Terumo 1 [id number] 449245 595701 089148 40 [facility] 1 140-0250-00 844710 35783 399470 5 Wrist V[address] Support Dynamics [address] Mendez St Mendez 1 321719 383686 518624 137214 30 260cm J .035 wire Hernandez Hernandez 1 [id number] 579851 895377 178294 5 Whisper J Vascular 300cm 0.014 guide wire Cordis 6FR Cardinal 1 [id number] 285550 624489 300633 10 XBLAD 3.5 Health guide catheter Medtronic Medtronic 1 [id number] 606676 852059 3 [id number] Integrity 3.0 X 12 stent Medtronic Medtronic 1 [id number] 923290 604698 2 [id number] Integrity 2.5 X 22 stent Terumo TR Terumo 1 [id number] 252700 056950 567550 40 Band Standard Signature Audit Sentinel Stage Time Signature Unsigned Intra-Procedure 01/26/2017 Mayank Salamanca 10:57:54 AM RT(R) Signatures Monitor : Mayank Salamanca RT Signature : Date : Time : [address] [place] [address]
[~2017-01-26 07:58] MED LIST: BAYER CHEWABLE81 MG PO; FISH OIL 1,0001 CA1 PO; PLAVIX75 MG PO
[2017-01-26 08:20] VITALS: BP 157/89; BMI 27.7
[2017-01-26 08:34] LABS: BASOPHILS 0.5 % (0-2); EOSINOPHILS 2.7 % (0-7); HEMATOCRIT 44.7 % (42.0-54.0); IMMATURE GRANULOCYTES 0.2 % (0-5); LYMPHOCYTES 20.1 % (15-50); MCH 28.9 pg (26.0-34.0); MCHC 33.6 g/dL (31.0-37.0); MCV 86.1 fL (80.0-100.0); MEAN PLATELET VOLUME 9.8 fL (7.4-10.4); MONOCYTES 8.3 % (2-11); NEUTROPHILS 68.2 % (40-80); PLATELET COUNT 236 10x3/uL (130-400); RBC 5.19 10x6/uL (4.20-6.10); RDW 13.9 % (11.5-14.5); WBC 5.7 10x3/uL (4.8-10.8)
[2017-01-26 08:41] LABS: ANION GAP 9.8 mmol/L (8-16); CALCIUM 9.2 mg/dL (8.5-10.1); CARBON DIOXIDE 26.1 mmol/L (21.0-32.0); CREATININE - SERUM 1.1 mg/dL (0.6-1.3); POTASSIUM - SERUM 3.9 mmol/L (3.5-5.1)
--- NOTE | 2017-01-26 11:15 | NUR ---
2L NC, NO RESP DISTRESS NOTED. RIGHT WRIST TR BAND CDI, NO BLEEDING OR HEMATOMA NOTED. SANDWICH TRAY AND DRINK GIVEN, NO C/O NAUSEA. VSS.
--- NOTE | 2017-01-26 11:45 | NUR ---
2L NC, NO RESP DISTRESS. RIGHT WRIST TR BAND CDI, NO BLEEDING OR HEMATOMA NOTED. SANDWICH TRAY AND DRINK GIVEN. NO C/O PAIN OR NAUSEA. VSS. CALL LIGHT WITHIN REACH.
--- NOTE | 2017-01-26 12:00 | NUR ---
RESTING QUIETLY WITH EYES CLOSED. RIGHT WRIST TR BAND CDI, NO BLEEDING OR HEMATOMA NOTED. 2L NC, NO RESP DISTRESS. VSS. WILL CONTINUE TO MONITOR.
--- NOTE | 2017-01-26 12:30 | NUR ---
RESTING QUIETLY WITH EYES CLOSED. RIGHT WRIST TR BAND CDI, NO BLEEDING OR HEMATOMA NOTED. 2L NC, NO RESP DISTRESS. VSS. CALL LIGHT WITHIN REACH.
--- NOTE | 2017-01-26 14:00 | NUR ---
3CC OF AIR REMOVED FROM TR BAND, NO BLEEDING NOTED.
--- NOTE | 2017-01-26 14:15 | NUR ---
3CC OF AIR REMOVED FROM TR BAND, NO BLEEDING NOTED.
--- NOTE | 2017-01-26 14:40 | NUR ---
2CC OF AIR REMOVED FROM TR BAND, NO BLEEDING NOTED. LEFT WRIST PIV D/C'D WITH CATHETER INTACT, BAND AID TO SITE. UP TO BEDSIDE TO GET DRESSED.
--- NOTE | 2017-01-26 14:48 | NUR ---
DISCHARGE INSTRUCTIONS GIVEN, VERBALIZED UNDERSTANDING. REMAINING AIR REMOVED FROM TR BAND AND DRESSING PLACED TO SITE.
--- NOTE | 2017-01-26 14:58 | NUR ---
TAKEN OUT VIA WHEELCHAIR BY [facility] COUNSELOR. LEFT FACILITY WITH FAMILY MEMBER AND ALL PERSONAL BELONGINGS.
--- NOTE | 2017-02-09 16:56 | HP ---
PATIENT: SHYANNE PEÑA MEDICAL RECORD: [id number] ACCOUNT: [id number] LOCATION:[facility] : 49 ADMISSION DATE: 01/26/17 HISTORY AND PHYSICAL EXAMINATION ADMITTING DIAGNOSES: 1. Angina. 2. Coronary artery disease. 3. Percutaneous transluminal coronary angioplasty stent of right coronary artery recently with concomitant disease of left anterior descending and circumflex. HISTORY OF PRESENT ILLNESS: Mr. Peña presents with anginal symptomatology, found to have 3-vessel coronary artery disease, underwent successful PTCA stent of the RCA. He is now brought back for PTCA stent of the LAD and left circumflex. PHYSICAL EXAMINATION: GENERAL APPEARANCE: Well-nourished, well-developed, appears stated age. Level of distress, comfortable. PSYCHIATRIC: Mental status, alert, normal affect. Orientation, oriented to time, place and person. EYES: Lids and conjunctiva, noninjected. No discharge, no pallor. ENT: Lips, teeth, gums, normal dentition. Oropharynx, no cyanosis, no pallor. NECK: Carotid arteries, bilateral normal upstroke, no bruits, no thrills. JUGULAR VEINS: No jugular venous pressure or distention. CERVICAL LYMPH NODES: Nontender, nonenlarged. THYROID: Not enlarged. Nontender. No nodules. LUNGS: Respiratory effort, unlabored. CHEST: Normal curvature. No thoracic deformity. No chest wall tenderness. Percussion, resonant. Auscultation, clear. No wheezes, no rales, no rhonchi. CARDIOVASCULAR: Precordial exam, nondisplaced. No heaves or pericardial thrills. Rate and rhythm, regular. Heart sounds, normal S1, normal S2. No S3, no gallop, no rub. Systolic murmur, not heard. Diastolic murmur, not heard. EXTREMITIES: No cyanosis, no edema. Peripheral pulses, full and equal in all extremities, except as noted. No bruits appreciated. ABDOMEN: Soft, nondistended. Normal aorta. No bruit. Nontender. No masses. Liver, nontender, no hepatomegaly. Spleen, nontender, no splenomegaly. MUSCULOSKELETAL: No joint tenderness. No joint swelling. No erythema. NEUROLOGICAL: Normal gait, normal strength, normal tone. SKIN: Warm and dry. REVIEW OF SYSTEMS: The patient reports easy bruising but reports no swollen glands. The patient reports no fever, no night sweats, no significant weight gain, no significant weight loss. No significant exercise tolerance. The patient reports no dry eyes, no irritation, no vision change. Patient reports no difficulty hearing and no ear pain. Patient reports no frequent nose bleeds or nose and sinus problems. Patient reports on arm pain on exertion. No shortness of breath while lying down. No history of heart murmur. Patient reports no cough, no wheezing or coughing up blood. Patient reports no abdominal pain, no vomiting. Normal appetite. No diarrhea and not vomiting blood. No nausea and no constipation. Patient reports no incontinence. No difficulty urinating. No hematuria. No increased frequency. Patient reports no muscle aches. No weakness, no arthralgias, no back pain. No swelling of the HISTORY AND PHYSICAL [id number] SHYANNE PEÑA extremities. Patient reports no abnormal mole, no jaundice, no rashes. Reports no loss of consciousness. No weakness and no numbness. No seizures, dizziness, or headaches. The patient reports no depression, no sleep disturbance, feeling safe in a relationship and no alcohol abuse. Patient reports on fatigue. Reports no runny nose or sinus pressure. No itching, no hives, and no frequent sneezing. OVERALL IMPRESSION: Anginal symptomatology with significant disease of the left anterior descending and circumflex. We will proceed with transcatheter revascularization of these vessels. TRANSINT:[id number] Voice Confirmation ID: [id number] DOCUMENT ID: [id number] ENDER SHER MD at 1656 CC: [id number] DICTATION DATE: 01/26/17933 RECORDS MANAGEMENT ANALYST: 01/26/17 1011 DEP CLI 01/26/17 [facility] [address] [place] [id number]
--- NOTE | 2017-02-09 16:56 | OP ---
PATIENT NAME: SHYANNE PEÑA MEDICAL RECORD: [id number] :49 LOCATION:D.CAT ADMISSION DATE: SURGEON: ENDER SHER MD DATE OF OPERATION: 01/26/2017 PROCEDURES: 1. PTCA stent to LAD. 2. PTCA stent to left circumflex. 3. Selective coronary angiography. PROCEDURE IN DETAIL: After informed consent was obtained and after a detailed explanation of the risks, benefits as well as alternative therapies, the patient elected to proceed with angiogram and angioplasty. The right radial area was prepped and draped in normal sterile fashion. The right radial artery was cannulated via modified Seldinger technique with placement of 6-Georgian sheath. All catheters were exchanged through this sheath. At the end of the case, all catheters removed. Sheath was also removed. Hemostasis obtained via TR band and direct compression. He tolerated the procedure well with no complications and returned back to the room in stable hemodynamic condition. FINDINGS: The left anterior descending has a long 80% stenosis in the mid vessel. This was addressed with a 2.5 x 22 mm Integrity. The left circumflex has 70% stenosis in the mid vessel. This was addressed with a 3.0 x 12 mm Integrity. Result was 0% residual throughout. OVERALL IMPRESSION: Successful percutaneous transluminal coronary angioplasty stent of the left anterior descending and circumflex going from 70-80% initial stenosis to 0% residual stenosis. TRANSINT:[id number] Voice Confirmation ID: [id number] DOCUMENT ID: [id number] ENDER SHER MD at 1656 CC: [id number] DICTATION DATE: 01/26/17 1053 LEAD COOK: 01/26/17 1154 DEP CLI 01/26/17 [facility] [address] [place] [address]
== END 2017-01-26 14:58 | disposition home or self-care (01) ==
LOC: D.CATH 07:58
PROVIDERS: Internal Medicine Interventional Cardiology
DX: I25.119 Atherosclerotic heart disease of native coronary artery with unspecified angina pectoris (principal); Z95.5 Presence of coronary angioplasty implant and graft; Z01.812 Encounter for preprocedural laboratory examination

== ENCOUNTER → 2017-09-05 17:52 | Outpatient (CLI) | payer MEDICARE, OTHER ==
[2017-09-05 19:28] LABS: LDL-HDL RATIO 3.6 ratio (1.5-3.5)
== END | disposition home or self-care (01) ==
LOC: D.LABREF 17:52
PROVIDERS: Internal Medicine Interventional Cardiology
DX: I25.10 Atherosclerotic heart disease of native coronary artery without angina pectoris (principal)